=== PATIENT | male | born 1985 | race Caucasian/White ===

== ENCOUNTER 2020-06-21 15:43 | Emergency (ER) | payer OTHER ==
[~2020-06-21] VITALS: Ht 190.5 cm; Wt 104.3 kg
[2020-06-21 15:56] LABS: URINE BILIRUBIN NEGATIVE (Negative); URINE BLOOD NEGATIVE (Negative); URINE CLARITY CLEAR; URINE COLOR YELLOW; URINE GLUCOSE-RANDOM NEGATIVE (Negative); URINE KETONES NEGATIVE (Negative); URINE LEUKOCYTES-REFLEX NEGATIVE (Negative); URINE NITRITE-REFLEX NEGATIVE (Negative); URINE PROTEIN NEGATIVE (Negative); URINE SPECIFIC GRAVITY 1.025 (1.005-1.030)
[2020-06-21 17:37] LABS: AMP/METHAMP POSITIVE (Negative); BARBITURATES Negative (Negative); BENZODIAZEPINES Negative (Negative); COCAINE Negative (Negative); METHADONE Negative (Negative); OPIATES Negative (Negative); PCP Negative (Negative); THC Negative (Negative)
[2020-06-21 17:53] LABS: ABSOLUTE BASOPHILS 0.1 thou/uL (0.0-0.2); ABSOLUTE EOSINOPHILS 0.3 thou/uL (0.0-0.7); ABSOLUTE LYMPHOCYTES 2.2 thou/uL (0.8-5.3); ABSOLUTE MONOCYTES 0.8 thou/uL (0.0-1.2); ABSOLUTE NEUTROPHILS 5.4 thou/uL (1.6-8.1); BASOPHILS 0.8 %; EOSINOPHILS 3.6 %; HEMATOCRIT 49.2 % (42.0-52.0); HEMOGLOBIN 16.3 gm/dL (14.0-18.0); LYMPHOCYTES 24.8 %; MCH 28.8 pg (26.0-34.0); MCHC 33.1 g/dL (28.0-37.0); MCV 86.9 fL (80.0-100.0); MONOCYTES 9.6 %; MPV 7.1 fl. (7.2-11.1); NUCLEATED RBCS 0 /100WBC; PLATELET COUNT* 251 thou/uL (150-400); POLYS 61.2 %; RBC 5.66 mil/uL (4.50-6.00); WBC 8.7 thou/uL (4.0-11.0)
[2020-06-21 18:03] LABS: CALCIUM 9.1 mg/dL (8.5-10.1); CREATININE 0.9 mg/dL (0.6-1.3); POTASSIUM 4.1 mmol/L (3.5-5.1)
[2020-06-21 18:11] LABS: ALBUMIN 3.9 g/dL (3.4-5.0); TOTAL BILIRUBIN 0.5 mg/dL (<0.1-1.0); TOTAL PROTEIN 7.3 g/dL (6.4-8.2)
[2020-06-21] MEDS ORDERED: NORCO 5-325 TA1 EAC2 PO (18:53)
[2020-06-21] MEDS ORDERED: ZOFRAN ODT4 MG PO (18:53)
[2020-06-21 19:00] VITALS: BP 141/84
--- NOTE | 2020-06-22 10:40 | EKG ---
[place] [address] ELECTROCARDIOGRAM REPORT Name: LELO FRANCO Room: [facility]#: [id number] Admission: 06/21/20 Attend Phys: Discharge: 06/21/20 Date of : 89 Date of Service: 06/21/208 Report #: [id number] THIS REPORT FOR: //name// [facility] ED Test Date: 2020-06-21 Test Time: 16:28:31 Pat Name: LELO FRANCO Department: Room: Gender: [employer]: : 1985 Requested By: Alexus Cole Order Number: [id number] MD: Magan Earl Measurements Intervals Vaughn Rate: 84 P: 34 OK: 141 QRS: 47 QRSD: 90 T: 46 QT: 350 QTc: 414 Interpretive Statements Sinus rhythm ST elev, probable normal early repol pattern No previous ECG available for comparison Electronically Signed On 06-22-2020 10:40:43 [employer] by Magan Earl [email or web address] <ELECTRONICALLY SIGNED> By: Magan Earl MD, [facility] 06/22/20 1040 1628 1628 Magan Earl MD, FACC /EPI
== END 2020-06-21 19:00 | disposition home or self-care (01) ==
LOC: M.ERS 15:43
PROVIDERS: Nurse Practitioner Family
DX: R10.12 Left upper quadrant pain (principal); Z86.19 Personal history of other infectious and parasitic diseases